=== PATIENT | male | born 1960 | race Caucasian/White ===

== ENCOUNTER → 2024-04-16 | Outpatient (CLI) | payer BC, SELFPAY ==
--- NOTE | 2024-04-16 08:30 | XR_ITS ---
Examination: CT chest, without intravenous contrast. Sagittal and coronal 2-D reconstructions. Exam date and time: April 16, 2024 0849 hours INDICATIONS: COPD diagnosis with coughing, May 21, 2023 CT chest 3 mm pulmonary nodule 6 mm pulmonary nodule right upper lobe 3 mm pulmonary nodule left upper lobe CTDI:vol (mGy) 13 DLP: (mGycm) 542 Technique: Multiple 3.0 mm axial sections of the chest to been obtained. Bone and lung density settings are obtained. Sagittal and coronal 2-D reconstructions have been obtained. Low dose protocols were performed. One or more of the following dose reduction techniques were used; automated exposure control, adjustment of the mA and/or KV according to patient size, use of iterative reconstruction technique. Findings: Thoracic aortic calcification no aneurysmal dilatation Pulmonary artery segments are not enlarged No paratracheal tracheobronchial or bronchopulmonary adenopathy Again noted 6 mm pulmonary nodule right upper lobe 3 mm pulmonary nodule right upper lobe 3 mm pulmonary nodule left upper lobe Interval 2 mm pulmonary nodule right lower lobe image 332 No visualized liver or splenic lesion IMPRESSION: New 2 mm pulmonary nodule right lower lobe, suggest continued CT chest without contrast follow-up in 6 months
== END | disposition home or self-care (01) ==
LOC: CCTX 08:27
PROVIDERS: PCP Family Medicine; Referring Provider Physician Assistant; Visit Provider Physician Assistant
DX: R91.1 Solitary pulmonary nodule (principal)
CPT/HCPCS: 71271

== ENCOUNTER → 2024-04-17 | Outpatient (CLI) | payer BC, SELFPAY ==
[2024-04-17 12:14] LABS: Misc Send Out* See Sep Rpt
[2024-04-17 16:45] LABS: RA Screen Negative (Negative)
[2024-04-25 08:48] LABS: Sjogren's antibody (SS-A) <1.0 NEG AI (<1.0 NEGATIVE); Sm Antibody <1.0 NEG AI (<1.0 NEGATIVE)
[2024-04-28 06:29] LABS: ANA Pattern CYTOPLASMIC; ANA Pattern NUCLEAR, SPECKLED; ANA Screen, IFA POSITIVE (NEGATIVE); ANA Titer 1:40 titer; Actin Antibody (IgG)* <20 U; Complement Component C3* 148 mg/dL (82-185); Complement Component C4c* 27 mg/dL (15-53); DNA (ds) Antibody* <1 IU/mL; Endomysial Ab IgA NEGATIVE (NEGATIVE); Gastric Parietal Cell Ab* <20.0 U; Mitochondrial Ab NEGATIVE (NEGATIVE); Myocardial Ab, IF NEGATIVE (NEGATIVE); Scl-70 Antibody* <1.0 NEG AI (<1.0 NEGATIVE); Sjogren's Antibody (SS-B) <1.0 NEG AI (<1.0 NEGATIVE); Sm/RNP Antibody <1.0 NEG AI (<1.0 NEGATIVE); Striated Muscle Ab NEGATIVE (NEGATIVE); Thyroid Peroxidase Antibodies* 2 IU/mL (<9)
== END | disposition home or self-care (01) ==
LOC: COPL 11:47
PROVIDERS: PCP Family Medicine; Referring Provider Specialist; Visit Provider Specialist
DX: R76.0 Raised antibody titer (principal)
CPT/HCPCS: 36415; 83516; 86015; 86038; 86160; 86225; 86231; 86235; 86255; 86376; 86430

== ENCOUNTER → 2024-09-23 | Outpatient (CLI) | payer BC, SELFPAY ==
--- NOTE | 2024-09-23 13:00 | XR_ITS ---
Examination: CT chest, without intravenous contrast. Sagittal and coronal 2-D reconstructions. Exam date and time: September 23, 2024 1316 hours INDICATIONS: History COPD shortness of breath one year, new 2 mm pulmonary nodule right lower lobe on CT chest April 16, 2024 CTDI:vol (mGy) 13.1 DLP: (mGycm) 532 Technique: Multiple 3.0 mm axial sections of the chest to been obtained. Bone and lung density settings are obtained. Sagittal and coronal 2-D reconstructions have been obtained. Low dose protocols were performed. One or more of the following dose reduction techniques were used; automated exposure control, adjustment of the mA and/or KV according to patient size, use of iterative reconstruction technique. Findings: Thoracic aortic calcification no aneurysmal dilatation Pulmonary artery segments are not enlarged. No paratracheal tracheobronchial or bronchopulmonary adenopathy Stable bilateral pulmonary nodules, no new pulmonary nodules. No interval pneumonia or pulmonary edema COPD with areas of airspace destruction No visualized liver or splenic lesion Contracted gallbladder Kidneys partially visualized no hydronephrosis Prominent osteopenia IMPRESSION: Stable bilateral pulmonary nodules, no new pulmonary nodules
== END | disposition home or self-care (01) ==
LOC: CCTX 12:53
PROVIDERS: PCP Physician Assistant; Referring Provider Specialist; Visit Provider Specialist
DX: R91.8 Other nonspecific abnormal finding of lung field (principal)
CPT/HCPCS: 71250

== ENCOUNTER → 2025-01-07 | Outpatient (CLI) | payer BC, SELFPAY ==
--- NOTE | 2025-01-07 09:00 | XR_ITS ---
Examination: CT chest, without intravenous contrast. Sagittal and coronal 2-D reconstructions. Exam date and time: January 07, 2025, 0832 hours, comparison September 23, 2024 INDICATIONS: Shortness of breath 1 month, bilateral pulmonary nodules on CT chest September 23, 2024,. CTDI:vol (mGy) 12.2 DLP: (mGycm) 496 Technique: Multiple 3.0 mm axial sections of the chest to been obtained. Bone and lung density settings are obtained. Sagittal and coronal 2-D reconstructions have been obtained. Low dose protocols were performed. One or more of the following dose reduction techniques were used; automated exposure control, adjustment of the mA and/or KV according to patient size, use of iterative reconstruction technique. Findings: Thoracic aortic calcification, no aneurysm dilatation Pulmonary artery segments are not enlarged. No paratracheal tracheobronchial or bronchopulmonary adenopathy Stable bilateral pulmonary nodules subcentimeter No new pulmonary nodules No interval pneumonia or pulmonary edema No pleural disease No visualized liver or splenic lesion Contracted gallbladder IMPRESSION: Stable bilateral pulmonary nodules, no new pulmonary nodules
== END | disposition home or self-care (01) ==
PROVIDERS: PCP Family Medicine; Referring Provider Internal Medicine Endocrinology, Diabetes & Metabolism; Visit Provider Nurse Practitioner Family
DX: R91.8 Other nonspecific abnormal finding of lung field (principal)
CPT/HCPCS: 71250

== ENCOUNTER → 2025-03-25 | Outpatient (CLI) | payer BC, SELFPAY ==
--- NOTE | 2025-03-25 09:00 | XR_ITS ---
Study: Chest CT without contrast. INDICATION: History of lung nodules as per patient. TECHNIQUE: 3 mm slice thickness without contrast. 3 mm sagittal and coronal reformats. Radiation dose 577 mGy centimeters with dose reduction technique. 1833 images at 0950 hours 25 March 2025. FINDINGS: The patient was imaged from the thyroid cartilage to the lung bases. The thyroid gland is normal in appearance. There is no adenopathy at the thoracic inlet, mediastinum or hilar regions. The aorta and pulmonary outflow tract are normal in caliber. A single roel of calcification is noted in the left anterior descending coronary artery. The heart is normal in size and contour. There is no pericardial effusion. The lungs are diffusely hyperexpanded. Throughout the apices, there are clustered emphysematous pneumatoceles. Additional solitary pneumatoceles are seen in the slightly lower aspects of the upper lobes the middle lobe, the lingula and the left lower lobe. There is minimal lower lobe bronchiectasis. Mild linear scarring is noted in the medial segment of the middle lobe. There is no pleural effusion. A smoothly irregular soft tissue noncalcified nodule of 6.9 mm is present in the anterolateral aspect of the right upper lobe and slice 162 of sequence 201. The pleural spaces are dry. There is a 4 sided smoothly angulated water density nodule without calcification in the anterolateral aspect of the right upper lobe in image 162 of the axial sequence. The nodule currently measures 6.8 x 6.7 mm and measured approximately 5.5 x 5.9 mm on the study of 07 January 2025. There is no other definite nodularity. The adrenal glands are normal in appearance. There are no stones in the gallbladder. Impression: 1: Soft tissue nodule increasing in size in the right upper lobe subsequent to 07 January 2025. Consider biopsy. 2. Diffuse emphysematous change.
== END | disposition home or self-care (01) ==
PROVIDERS: PCP Family Medicine; Referring Provider Specialist; Visit Provider Specialist
DX: R91.1 Solitary pulmonary nodule (principal)
CPT/HCPCS: 71250